=== PATIENT | female | born 1985 | race Hispanic/Latino ===

== ENCOUNTER 2017-03-23 09:19 | Emergency (ER) | payer OTHER ==
[~2017-03-23] VITALS: Ht 165.1 cm; Wt 92.3 kg
[2017-03-23 09:24] VITALS: BP 114/73; PULSE 79; RESP 16; O2SAT 99
--- NOTE | 2017-03-23 09:29 | ED.REPORT ---
HPI-Preg Under 20 Weeks Date of Service March 23, 2017 ED Provider: Dr. Villavicencio 31 y/o female with a hx of depression and hepatitis presents to the ED complaining of lower abdominal pain and spotting, onset yesterday. The pt approximates she is 6 weeks . She reports the pain is similar to period cramps and rates it 5/10 in severity. The pt states the bleeding is less than her typical period. She is concerned because she never experienced similar sx during her other two pregnancies. Nursing Notes Stated Complaint: ,CRAMPING SPOTTING Chief Complaint: Female Abdominal Pain Nursing Notes Reviewed: Yes Allergies: Coded Allergies: No Known Allergies (Verified , 04/16/14) Miscellaneous Medications Vit W-Ca,Fe,FA(<1 mg) ( Formula) 1 Each Tablet 1 EACH PO General Time Seen by Provider: 09:31 Chief Complaint Abdominal cramping Hx Obtained From: Patient Arrived By: Walk-in Onset Occurred: Yesterday Symptom Duration: Since onset Progression Since Onset: Unchanged Location: : Pelvis Quality: Cramping Radiation: : None Severity: Current: Mild Severity: Maximum: Mild Recent Healthcare: No recent doctor visit Similar Sx Previous: No Past Medical History Past Medical History Previous suicide attempt Hepatitis Reports: Depression Past Surgical History Reports: Cholecystectomy Smoking History Former Smoker Social History Alcohol Use: Denies alcohol use Drug Use: Denies drug use Other Social History: Ambulatory Status Independent Review of Systems GI: Reports: Abdominal pain Female: Reports: , Vaginal bleeding - abnl Complete sys rev & neg: except as marked. Physical Exam Initial Vital Signs Vital Signs (First) Date Time Temp Pulse Resp B/P Pulse Ox O2 Delivery O2 Flow Rate FiO2 03/23/17 09:24 36.2 79 16 114/73 99 Room Air Initial VS: Reviewed Neck: Supple, Full range of motion Respiratory: Breath sounds normal, No respiratory distress Cardiovascular: Regular rate & rhythm, Heart sounds normal Extremities: Vascular intact, Neuro intact, No swelling, No tenderness Skin: Warm, Dry, No cyanosis Neurologic: Alert, Oriented, Nonfocal General/Constitutional: Awake, Alert, Cooperative Appearance / Presentation: Positive: Obese Abdomen: Atraumatic, Soft, No guarding, No rebound Mid-line pelvic pain Female Genitourinary: Exam deferred : Exam deferred Interpretation & Diagnostics Lab Results Interpretation Result Diagram: 03/23/17 1045 03/23/17 1045 Test 03/23/17 09:39 03/23/17 10:45 Urine Color Straw (YELLOW) Urine Appearance Hazy (CLEAR,HAZY) Urine pH 6.5 (5.0-8.0) Urine Specific [place] 1.005 (1.003-1.035) Urine Protein Negativemg/dL (NEG,TRACE) Urine Glucose (UA) Negativemg/dL (NEGATIVE) Urine Ketones Negativemg/dL (NEGATIVE) Urine Occult Blood Large (NEGATIVE) Urine Nitrite Negative (NEGATIVE) Urine Bilirubin Negative (NEGATIVE) Urine Urobilinogen Normalmg/dL (NORMAL) Urine Leukocyte Esterase Trace (NEGATIVE) Urine RBC 0-2/hpf (0-2) Urine WBC 0-5/hpf (0-5) Urine Epithelial Cells Occasional/hpf (NONE-MOD) Urine Crystals None seen (NONE SEEN) Urine Bacteria Moderate/hpf (NONE-FEW) Urine Hyaline Casts None/lpf (NONE) Urine Granular Casts None seen (NONE SEEN) Urine Waxy Casts None seen (NONE SEEN) Urine Red Blood Cell Casts None seen (NONE SEEN) Urine White Blood Cell Casts None seen (NONE SEEN) Urine Mucus None seen (None Seen) Urine Trichomonas None seen (NONE SEEN) Urine Yeast None (NONE SEEN) Urinalysis Comment None Urine Culture Reflexed Indicated White Blood Count 6.5th/mm3 (3.8-10.1) Red Blood Count 4.29mil/mm3 (3.90-5.20) Hemoglobin 12.2g/dL (12.0-15.6) Hematocrit 37.0% (35.0-46.0) Mean Corpuscular Volume 86.2fL (81-100) Mean Corpuscular Hemoglobin 28.4pg (27.0-35.0) Mean Corpuscular Hemoglobin Concent 33.0% (32.0-37.0) Red Cell Distribution Width 13.2% (12.3-15.4) Platelet Count 252bil/L (150-400) Sodium Level 139mEq/L (134-144) Potassium Level 4.1mEq/L (3.5-5.2) Chloride Level 103mEq/L (97-108) Carbon Dioxide Level 22mmol/L (18-29) Blood Urea Nitrogen 4mg/dL (6-20) Creatinine 0.50mg/dL (0.57-1.00) Estimat Glomerular Filtration Rate 206mL/min (>59) Glucose Level 104mg/dL (60-99) Calcium Level 9.3mg/dL (8.5-10.1) Total Bilirubin 0.3mg/dL (0.0-1.2) Aspartate Amino Transf (AST/SGOT) 23U/L (0-50) Alanine Aminotransferase (ALT/SGPT) 24U/L (0-32) Alkaline Phosphatase 84U/L (25-150) Total Protein 6.9g/dL (6.4-8.4) Albumin 4.1g/dL (3.4-5.0) HCG Beta Subunit 1041mIU/mL Urine test: positive Urine dipstick: SP gravity = 1.005 pH = 7 Leukocytes = trace Blood = +++ Hemoglobin = ~250 US Focused OB IMPRESSION: Sac like intrauterine fluid collection present without double decidual sac sign, yolk sac or pole. Differential considerations would include spontaneous in progress, early intrauterine gestation as well as ectopic . Recommend clinical correlation with serial beta-hCGs and/or followup sonographic imaging if indicated. Complex thickwalled mass associated with the left ovary likely represents a complex corpus luteal cyst but given the sonographic appearance with central sonolucency, ectopic cannot be excluded and close clinical correlation and followup ultrasound is recommended. Dr. Villavicencio given results by the windows systems engineer at 1020 hrs. 03/23/2017. Dictated by: Omi Valdivia RRA Interpreted: Dioni Martinez MD on 03/23/2017 at 10:29 Transcribed by: ASHLYN on 03/23/2017 at 10:37 Exam Performed by: Radiologist Re-Eval/Medical Decision Med Decision/Clinical Course Patient's ultrasound is somewhat ambiguous however clinically she has minimal bleeding and no unilateral pain. Both her primary care doctor who performs her OB care and the director intelligence analysis programs public relations coordinator were consulted and the case was discussed the labs and ultrasound was reviewed. It is overall felt that this patient is stable to go home. We have secured a 24-hour follow-up with her PCP who does her OB care. She is given strict return and follow-up precautions. Re-Evaluation/Progress #1: Time of Eval: 11:35 Re-Evaluation/Progress Note: Rechecked pt. She reports her bleeding has slightly increased since the ultrasound. Re-Evaluation/Progress #2: Time of Eval: 12:20 Re-Evaluation/Progress Note: Rechecked pt. Discussed lab, imaging results and diagnosis. Informed the pt of the plan to discharge. Pt understands and agrees with plan. F/U instructions and RTER warning given. All questions addressed. Consultation #1: Referral / Consult Name: Edgard Palacios MD Call Returned at: 11:47 Board Worker: Will see patient Note: Dr. Palacios, family medicine/OB, agrees with eval and agrees to see the pt in his office. He recommends consult with Dr. Uriarte. Consultation #2: Referral / Consult Name: Taylor Uriarte MD Call Returned at: 12:16 Board Worker: Agrees with eval, Agrees with plan Counseled Regarding: Diagnosis, Lab results, Need for follow-up, When/why to return to ED Discharge & Departure Primary Impression: Threatened miscarriage Disposition: Home Discharge Condition All VS Reviewed: Yes Additional Instructions: Overall your tests are reassuring. There is some concern that you either have a ovarian cyst and much less likely an ectopic in the left ovary. After discussion with both PYROTECHNICIAN and your family practice doctor, it seems that we can let you go home. Follow-up with Dr. Palacios tomorrow as planned at 12:30. Return to the ER immediately if you develop severe pain, especially on the left side, or increasing vaginal bleeding. Referrals: Jaswant Howell MD (PCP) Edgard Palacios MDiblance Attestation Portions of this note were transcribed by Vega Savage. I, , personally performed the history, physical exam and medical decision-making;I reviewed and confirmed the accuracy of the information in the transcribed note. Signed by Raz Pham. 03/23/17 12:47 copies to: Edgard Palacios MD; Jaswant Howell MD, Timothy S DO March 23, 2017 09:29 Vega Savage March 23, 2017 09:38
[2017-03-23] MEDS ORDERED: PREN-12 PO (09:42)
[2017-03-23 10:35] LABS: APPEARANCE,URINE HAZY (CLEAR,HAZY); COLOR,URINE STRAW (YELLOW); OCCULT BLOOD,URINE LARGE (NEGATIVE); PH,URINE 6.5 (5.0-8.0)
[2017-03-23 10:36] LABS: UROBILINOGEN,URINE NORMAL (NORMAL)
--- NOTE | 2017-03-23 10:38 | DRSVH ---
PROCEDURE: US OB<14 WKS+OB TRANSVAG INDICATIONS: early bleeding, no known IUP OUTSIDE/PRIOR DATING DATA: First dating scan (date and location): 03/23/17. Estimated date of delivery (RADHA) from first dating scan: 11/22/17 by gestational sac size.. TECHNIQUE: Real-time scanning was performed of the fetus and maternal pelvic organs, with image documentation. Endovaginal scanning was also performed to better visualize the fetus and maternal ovaries. COMPARISON: None. FINDINGS: Embryo: OB-SKEIN INSPECTOR Ultrasound Procedure Report Early Gestation [employer] Mean Gestational Sac Diameter: 3.50 mm Gestational Age (MGSD): 5 weeks, 1 day Comments: Intrauterine sac like fluid collection is present without double decidual sac sign, yolk sa c or pole at this time. Measurement variability in dating: +/- 4 weeks by LMP, +/- 7 days by mean sac diameter (use before 6 weeks gestation if crown-rump length not able to be measured), +/- 5 days by crown-rump length (6-12 weeks gestation). Maternal organs: Complex mass which is thick walled and contains central sonolucency measuring roughl y 18 mm involves the left ovary. Ovaries otherwise are normal bilaterally. No intraperitoneal fluid . IMPRESSION: Sac like intrauterine fluid collection present without double decidual sac sign, yolk sac or po le. Differential considerations would include spontaneous in progress, early intrauterine g estation as well as ectopic . Recommend clinical correlation with serial beta-hCGs and/or f ollowup sonographic imaging if indicated. Complex thick walled mass associated with the left ovary likely represents a complex corpus luteal cy st but given the sonographic appearance with central sonolucency, ectopic cannot be exclude d and close clinical correlation and followup ultrasound is recommended. Dr. Villavicencio given results by the hvac/r service technician at 1020 hrs. 03/23/2017. Dictated by: Omi Valdivia RRMohamud Interpreted: Dioni Martinez MD on 03/23/2017 at 10:29 Transcribed by: ASHLYN on 03/23/2017 at 10:37 Approved by: Dioni Martinez M.D. on 03/23/2017 at 16:15
[2017-03-23 11:00] LABS: Mean Corpuscular Hemoglobin 28.4 pg (27.0-35.0); Mean Corpuscular Volume 86.2 fL (81-100)
[2017-03-23 12:30] VITALS: BP 118/68; PULSE 74; RESP 16; O2SAT 99
== END 2017-03-23 12:32 | disposition home or self-care (01) ==
LOC: SED 09:19
DX: O20.0 Threatened abortion (principal); F32.9 Major depressive disorder, single episode, unspecified; Z3A.01 Less than 8 weeks gestation of pregnancy; Z86.19 Personal history of other infectious and parasitic diseases; Z87.891 Personal history of nicotine dependence